=== PATIENT | female | born 1980 | race African-American/Black ===

== ENCOUNTER 2018-12-07 22:47 | Observation (INO) ==
[2018-12-07] MEDS ORDERED: NITROGLYCERIN 2% OINT 1 INCH/GM PACK TOP STA (23:30)
[2018-12-07] MEDS ORDERED: ALUM/MAG/SIMETH/LIDO VISC 1:1 30 ML BOTTLE PO STA (23:30)
[2018-12-07] MEDS ORDERED: MORPHINE 4 MG/1 ML VIAL IV STA (23:30)
[2018-12-07] MEDS ORDERED: ONDANSETRON 4 MG/2 ML VIAL IV STA (23:30)
[2018-12-07] MEDS ORDERED: ASPIRIN 325 MG TABLET PO STA (23:30)
[2018-12-07 23:59] LABS: Basophils # 0.1 10*3/uL (0.0-0.2); Basophils % 0.9 % (0.0-0.8); Eosinophils # 0.1 10*3/uL (0.0-0.87); Eosinophils % 0.9 % (0.00-10.9); Hematocrit 37.1 VOL% (35.7-47.0); Hemoglobin 11.5 GM/DL (12.0-16.0); Immature Granulocytes % 0.3 %; Immature Granulocytes Absolute 0.02 #; Lymphocytes % 33.9 % (21.3-54.2); Mean Corpuscular Volume 93.9 FL (87-102); Mean Platelet Volume 9.4 FL (9.6-12.0); Monocytes % 9.2 % (1.7-12.7); Neutrophils % 54.8 % (38.7-73.9); Platelet Count 301 T/CUMM (130-400); Red Blood Count 3.95 MC/CUMM (3.8-5.5); White Blood Count 5.8 T/CUMM (4-12)
[2018-12-08 00:02] LABS: Apearance,Urine CLEAR (Clear); Bacteria,Urine Occasional /HPF (Few); Bilirubin,Urine Negative (Negative); Blood, Urine Negative (Negative); Glucose,Urine (UA) Negative (Negative); Hyaline Casts,Urine 1 /LPF (0-3); Ketones,Urine Negative (Negative); Nitrite,Urine Negative (Negative); Protein,Urine Negative; RBC,Urine <1 /HPF (0-4); Squamous Epithelial Cell,Urine Occasional /HPF (0-10); Urine Color Colorless (Yellow); Urine Specific Gravity 1.002 (1.001-1.035); Urine Urobilinogen < 2.0 EU/DL (0.2-1.0); WBC,Urine 1 /HPF (0-6)
[2018-12-08 00:11] LABS: PT Patient Result 10.7 SECS; Partial Thromboplastin Time 29.9 SECS (0-40)
[2018-12-08 00:13] LABS: Barbiturates Screen,Urine Negative (Negative); Benzodiazepines Screen,Urine Negative (Negative); Cannabinoid Screen,Urine Positive (Negative); Opiate Screen,Urine Negative (Negative); Phencyclidine Screen,Urine Negative (Negative)
[2018-12-08 00:17] LABS: Albumin 4.1 G/DL (3.4-5.0); Bilirubin,Total 0.4 MG/DL (0.2-1.0); Calcium 9.1 MG/DL (8.5-10.1); Total Protein 7.2 G/DL (6.4-8.3)
[2018-12-08] MEDS ORDERED: MORPHINE 4 MG/1 ML VIAL IV PRN (00:39)
[2018-12-08] MEDS ORDERED: ONDANSETRON 4 MG/2 ML VIAL IV PRN (00:39)
[2018-12-08] MEDS ORDERED: ENOXAPARIN 100 MG/ML SYRINGE SUBCUT STA (00:39)
[2018-12-08] MEDS ORDERED: ENOXAPARIN 40 MG/0.4 ML SYRINGE SUBCUT SCH (01:00)
[2018-12-08 02:28] LABS: Risk Ratio 1.83; VLDL CHOLESTEROL 9.4 MG/DL
[2018-12-08] MEDS ORDERED: NITROGLYCERIN 2% OINT 1 INCH/GM PACK TOP SCH (06:00)
[2018-12-08] MEDS ORDERED: CLOPIDOGREL 75 MG TABLET PO SCH (09:00)
[2018-12-08] MEDS ORDERED: ASPIRIN EC 81 MG TABLET PO SCH (09:00)
[2018-12-08] MEDS ORDERED: LISINOPRIL 10 MG TABLET PO SCH (09:00)
[2018-12-08] MEDS ORDERED: PANTOPRAZOLE 20 MG TABLET PO SCH (12:30)
[2018-12-08] MEDS ORDERED: METOPROLOL SUCCINATE XL 25 MG TABLET PO SCH (12:30)
[2018-12-08] MEDS ORDERED: ISOSORBIDE MONONITRATE 30 MG TABLET PO SCH (12:30)
[2018-12-08] MEDS ORDERED: ENOXAPARIN 60 MG/0.6 ML SYRINGE SUBCUT SCH (13:00)
[2018-12-08 13:51] VITALS: BP 124/64
[2018-12-08] MEDS ORDERED: ATORVASTATIN 40 MG TABLET PO SCH (21:00)
== END 2018-12-08 15:29 | disposition home or self-care (01) ==
LOC: N.EDINP 22:47 → N.ED 22:47 → N.CC 12-08 01:03
PROVIDERS: ADMIT Internal Medicine; ATTEND Internal Medicine